=== PATIENT | male | born 1935 | race Caucasian/White ===

== ENCOUNTER 2018-05-07 11:39 | Outpatient (CLI) | payer MEDICARE ==
--- NOTE | 2018-05-07 13:28 | RAD ---
RIGHT HIP TWO VIEWS: HISTORY: Right hip pain. No history of fall. TECHNIQUE: AP and frogleg views of the right hip are obtained. 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 Findings are compatible with severe right hip osteoarthritis. No evidence of acute fracture is seen. IMPRESSION: Severe right hip osteoarthritic changes. POS: [facility]
== END 2018-05-07 11:40 | disposition home or self-care (01) ==
LOC: SCSRAD 11:39
PROVIDERS: ATTEND Family Medicine
DX: M25.551 Pain in right hip (principal); M16.11 Unilateral primary osteoarthritis, right hip

== ENCOUNTER 2022-12-13 10:23 | Inpatient (IN) | payer MEDICARE ==
[2022-12-13 11:33] LABS: #Neutrophils 16.6 thou/uL (1.40-6.50); %Basophils 0.1 % (0.0-1.0); %Lymphocytes 5.1 % (21.0-51.0); %Monocytes 5.2 % (0.0-10.0); %Neutrophils 88.9 % (42.0-75.0); Hematocrit 46.3 % (42.0-52.0); Hemoglobin 16.5 g/dL (14.0-18.0); Mean Corpuscular HGB CONC 35.6 g/dL (32.0-36.0); Mean Corpuscular Volume 95.5 fl (78.0-98.0); Platelet Count 132 10x3/uL (130-400); RBC Distribution Width 12.5 % (11.5-14.5); Red Blood Cell (RBC) Count 4.85 mill/uL (4.70-6.10); White Blood Cell (WBC) Count 18.7 10x3/uL (4.8-10.8)
[2022-12-13 11:54] LABS: INR-International Normal Ratio 1.1; PTT 29.4 sec (22.9-36.1); Prothrombin Time 14.5 sec (12.0-14.7)
[2022-12-13 11:57] LABS: ALT (SGPT) 47 U/L (8-55); AST (SGOT) 176 U/L (5-34); Albumin 4.3 g/dL (3.4-4.8); Alkaline Phosphatase 80 U/L (40-110); Anion Gap 19 mmol/L (10-20); BUN (Urea Nitrogen) 17 mg/dL (8.4-25.7); Bilirubin, Total 2.7 mg/dL (0.2-1.2); Calc. Creatinine Clearance 0 mL/min (70-130); Calcium 9.3 mg/dL (7.8-10.44); Carbon Dioxide 21 mmol/L (23-31); Chloride 103 mmol/L (98-107); Estimated GFR 62; Globulin 2.9 g/dL (2.4-3.5); Glucose 144 mg/dL (83-110); Potassium 3.9 mmol/L (3.5-5.1); Protein, Total 7.2 g/dL (5.8-8.1); Sodium 139 mmol/L (136-145)
[2022-12-13] MEDS ORDERED: Ipratropium/Albuterol 3 ML NEB NEB PRN (13:00)
[2022-12-13] MEDS ORDERED: Morphine 2 MG/ML VIAL SLOW IVP PRN (13:00)
[2022-12-13] MEDS ORDERED: Ondansetron ODT 4 MG TAB PO PRN (13:00)
[2022-12-13] MEDS ORDERED: hydrALAZINE 20 MG/ML VIAL SLOW IVP PRN (13:00)
[2022-12-13] MEDS ORDERED: Dextrose 50% Abboject 50 ML SYRINGE SLOW IVP PRN ×2 (13:00→13:08)
[2022-12-13] MEDS ORDERED: Glucagon 1 MG/ML KIT IM PRN ×2 (13:00→13:08)
[2022-12-13] MEDS ORDERED: Dextrose 5% in Water 1,000 ML IV PRN ×2 (13:00→13:08)
[2022-12-13] MEDS ORDERED: TETANUS, DIPHTHERIA TOX,ADULT (TDVAX) 0.5 ML VIAL IM ONE (13:00)
[2022-12-13] MEDS ORDERED: HumaLOG 300 UNITS/3 ML VIAL SC PRN (13:08)
[2022-12-13 15:57] VITALS: BMI 27.1
[2022-12-13] MEDS: Sodium Chloride 0.9% 1,000 ML IV SCH (16:46)
[2022-12-13] MEDS: Acetaminophen 325 MG TAB PO SCH ×2 (18:12→23:00)
[2022-12-13] MEDS: Famotidine 20 MG TAB PO SCH (22:00)
[2022-12-13] MEDS: traMADol HCl 50 MG TAB PO PRN (22:11)
[2022-12-14] MEDS: Sodium Chloride 0.9% 1,000 ML IV SCH ×3 (00:05→22:23)
[2022-12-14 00:33] LABS: Bacteria/HPF 2+ HPF (None Seen); Bilirubin Negative (Negative); Blood, Urine 3+ (Negative); CAUTI Indications for Culture Alt mental st,lethar; Clarity Turbid (Clear); Glucose, Urine (Dipstick) Normal (Negative); Ketone, Urine Trace mg/dL (Negative); Leukocyte 75 Leu/uL (Negative); Nitrite 2+ (Negative); Protein, Urine (Dipstick) 100 mg/dL (Neg-Trace); RBC/HPF Greater than 50 HPF (0-3); Specific Gravity, Urine 1.032 (1.002-1.036); Squamous Epithelial 0-3 HPF (0-3); Urobilinogen Normal mg/dL (Less than 2); WBC/HPF Greater than 50 HPF (0-3); pH, Urine 5.5 (5.0-9.0)
[2022-12-14 00:37] LABS: Urine Culture Reflex Yes Yes
[2022-12-14] MEDS: Acetaminophen 325 MG TAB PO SCH ×3 (05:53→18:23)
[2022-12-14 06:11] LABS: #Basophils 0.1 thou/uL (0.0-0.2); #Neutrophils 10.3 thou/uL (1.40-6.50); %Basophils 0.4 % (0.0-1.0); %Eosinophils 0.2 % (0.0-10.0); %Lymphocytes 11.9 % (21.0-51.0); %Monocytes 7.5 % (0.0-10.0); %Neutrophils 79.3 % (42.0-75.0); Hematocrit 41.6 % (42.0-52.0); Hemoglobin 14.2 g/dL (14.0-18.0); Mean Corpuscular HGB CONC 34.1 g/dL (32.0-36.0); Mean Platelet Volume 12.5 fL (7.4-10.4); Platelet Count 111 10x3/uL (130-400); RBC Distribution Width 13.1 % (11.5-14.5); Red Blood Cell (RBC) Count 4.18 mill/uL (4.70-6.10)
[2022-12-14 06:24] LABS: Mean Corpuscular Volume 99.5 fl (78.0-98.0)
[2022-12-14 06:31] LABS: Anion Gap 13 mmol/L (10-20); BUN (Urea Nitrogen) 22 mg/dL (8.4-25.7); Calc. Creatinine Clearance 58 mL/min (70-130); Calcium 8.4 mg/dL (7.8-10.44); Carbon Dioxide 24 mmol/L (23-31); Chloride 106 mmol/L (98-107); Estimated GFR 60; Glucose 111 mg/dL (83-110); Sodium 139 mmol/L (136-145)
[2022-12-14] MEDS ORDERED: CEFAZOLIN 2 GM in Sodium Chloride 0.9% 100 ML IVPB SCH (06:45)
[2022-12-14] MEDS ORDERED: Piperacillin/Tazobactam 3.375 GM in Sodium Chloride 0.9% 100 ML IVPB SCH (08:00)
[2022-12-14] MEDS: Tamsulosin HCl 0.4 MG CAP PO SCH (09:12)
[2022-12-14] MEDS: Famotidine 20 MG TAB PO SCH ×2 (09:12→21:27)
[2022-12-14] MEDS: Polyethylene Glycol 3350 17 GM Packet PO SCH (09:37)
[2022-12-14] MEDS: Senokot S 8.6-50 MG TAB PO SCH ×2 (09:38→21:27)
[2022-12-14] MEDS ORDERED: Sodium Chloride 0.9% 100 ML ONE ×2 (13:32→13:43)
[2022-12-14] MEDS ORDERED: Piperacillin/Tazobactam 3.375 GM VIAL ONE (13:32)
[2022-12-14] MEDS ORDERED: CEFAZOLIN 2 GM VIAL ONE (13:43)
[2022-12-14] MEDS ORDERED: NEOSTIGMINE 3 MG/3 ML SYR 3 MG/3 ML SYRINGE ONE (13:57)
[2022-12-14] MEDS ORDERED: Rocuronium Bromide 10 MG/ML (10ML VIAL) ONE (13:57)
[2022-12-14] MEDS ORDERED: Lidocaine 1% PF 5 ML VIAL ONE (13:57)
[2022-12-14] MEDS ORDERED: Glycopyrrolate 0.2 MG/ML 5 ML SYRINGE ONE (13:57)
[2022-12-14] MEDS ORDERED: PHENYLEPHRINE-NS 100 MCG/ML 10 ML SYRINGE ONE (13:57)
[2022-12-14] MEDS ORDERED: Esmolol 100 MG/10 ML VIAL ONE (13:57)
[2022-12-14] MEDS ORDERED: Ondansetron PF 4 MG/2 ML Vial ONE (13:57)
[2022-12-14] MEDS ORDERED: ePHEDrine Sulfate 50 MG/10 ML VIAL ONE (13:57)
[2022-12-14] MEDS ORDERED: PROPOFOL 200 MG/20 ML VIAL ONE (13:57)
[2022-12-14] MEDS: Piperacillin/Tazobactam 3.375 GM in Sodium Chloride 0.9% 100 ML IVPB SCH ×2 (13:59→21:31)
[2022-12-14] MEDS ORDERED: fentaNYL 50 mcg/mL 1 mL Vial ONE ×4 (14:27→15:50)
[2022-12-14] MEDS ORDERED: Promethazine HCl 25 MG/ML VIAL IM PRN (15:37)
[2022-12-14] MEDS ORDERED: Ondansetron HCl/PF 4 MG/2 ML Vial IVP PRN (15:37)
[2022-12-14] MEDS ORDERED: Morphine Sulfate 2 MG/ML SYRINGE SLOW IVP PRN (15:37)
[2022-12-14] MEDS: CEFAZOLIN 2 GM in Sodium Chloride 0.9% 100 ML IVPB SCH (21:27)
[2022-12-14] MEDS: Rosuvastatin 10 MG TAB PO SCH (21:27)
[2022-12-14] MEDS: Donepezil HCl 10 MG TAB PO SCH (21:27)
[2022-12-14] MEDS: traMADol HCl 50 MG TAB PO PRN (21:39)
[2022-12-15] MEDS: Acetaminophen 325 MG TAB PO SCH ×5 (00:31→23:42)
[2022-12-15] MEDS: Piperacillin/Tazobactam 3.375 GM in Sodium Chloride 0.9% 100 ML IVPB SCH ×3 (03:52→20:42)
[2022-12-15 05:16] LABS: #Basophils 0.1 thou/uL (0.0-0.2); #Monocytes 1.2 thou/uL (0.11-0.59); #Neutrophils 8.4 thou/uL (1.40-6.50); %Basophils 0.5 % (0.0-1.0); %Eosinophils 0.3 % (0.0-10.0); %Lymphocytes 15.2 % (21.0-51.0); %Monocytes 10.6 % (0.0-10.0); %Neutrophils 72.9 % (42.0-75.0); Hematocrit 35.2 % (42.0-52.0); Hemoglobin 12.3 g/dL (14.0-18.0); Mean Corpuscular HGB CONC 34.9 g/dL (32.0-36.0); Mean Corpuscular Hemoglobin 34.6 pg (27.0-31.0); Mean Corpuscular Volume 98.9 fl (78.0-98.0); Mean Platelet Volume 11.4 fL (7.4-10.4); Platelet Count 101 10x3/uL (130-400); RBC Distribution Width 12.6 % (11.5-14.5); Red Blood Cell (RBC) Count 3.56 mill/uL (4.70-6.10); White Blood Cell (WBC) Count 11.5 10x3/uL (4.8-10.8)
[2022-12-15] MEDS: Sodium Chloride 0.9% 1,000 ML IV SCH ×2 (05:19→18:27)
[2022-12-15] MEDS: CEFAZOLIN 2 GM in Sodium Chloride 0.9% 100 ML IVPB SCH ×2 (06:05→15:50)
[2022-12-15] MEDS: Senokot S 8.6-50 MG TAB PO SCH ×2 (08:47→20:43)
[2022-12-15] MEDS: Polyethylene Glycol 3350 17 GM Packet PO SCH (08:47)
[2022-12-15] MEDS: Tamsulosin HCl 0.4 MG CAP PO SCH (08:47)
[2022-12-15] MEDS: Famotidine 20 MG TAB PO SCH ×2 (08:47→20:43)
[2022-12-15] MEDS: Rosuvastatin 10 MG TAB PO SCH (20:43)
[2022-12-15] MEDS: Donepezil HCl 10 MG TAB PO SCH (20:43)
[2022-12-15] MEDS: traMADol HCl 50 MG TAB PO PRN (22:54)
[2022-12-16] MEDS: Sodium Chloride 0.9% 1,000 ML IV SCH ×4 (01:34→21:40)
[2022-12-16] MEDS: Piperacillin/Tazobactam 3.375 GM in Sodium Chloride 0.9% 100 ML IVPB SCH ×3 (04:04→20:21)
[2022-12-16 05:33] LABS: #Eosinphils 0.1 thou/uL (0.0-0.7); %Basophils 0.4 % (0.0-1.0); %Eosinophils 1.4 % (0.0-10.0); %Lymphocytes 19.1 % (21.0-51.0); %Monocytes 9.9 % (0.0-10.0); %Neutrophils 68.5 % (42.0-75.0); Hematocrit 34.4 % (42.0-52.0); Hemoglobin 11.6 g/dL (14.0-18.0); Mean Corpuscular HGB CONC 33.7 g/dL (32.0-36.0); Mean Corpuscular Hemoglobin 33.8 pg (27.0-31.0); Mean Corpuscular Volume 100.3 fl (78.0-98.0); Mean Platelet Volume 12.2 fL (7.4-10.4); RBC Distribution Width 12.6 % (11.5-14.5); Red Blood Cell (RBC) Count 3.43 mill/uL (4.70-6.10); White Blood Cell (WBC) Count 10.1 10x3/uL (4.8-10.8)
[2022-12-16] MEDS: Acetaminophen 325 MG TAB PO SCH ×4 (05:40→23:54)
[2022-12-16 06:06] LABS: Platelet Count 95 10x3/uL (130-400)
[2022-12-16] MEDS: Tamsulosin HCl 0.4 MG CAP PO SCH (08:31)
[2022-12-16] MEDS: Famotidine 20 MG TAB PO SCH ×2 (08:31→20:20)
[2022-12-16] MEDS: Senokot S 8.6-50 MG TAB PO SCH ×2 (08:32→20:21)
[2022-12-16] MEDS: Polyethylene Glycol 3350 17 GM Packet PO SCH (08:35)
[2022-12-16] MEDS: traMADol HCl 50 MG TAB PO PRN ×2 (10:23→20:19)
[2022-12-16] MEDS: Rosuvastatin 10 MG TAB PO SCH (20:20)
[2022-12-16] MEDS: Donepezil HCl 10 MG TAB PO SCH (20:20)
[2022-12-17] MEDS: Piperacillin/Tazobactam 3.375 GM in Sodium Chloride 0.9% 100 ML IVPB SCH (03:31)
[2022-12-17 05:25] LABS: #Basophils 0.1 thou/uL (0.0-0.2); #Eosinphils 0.2 thou/uL (0.0-0.7); #Monocytes 1.1 thou/uL (0.11-0.59); #Neutrophils 6.2 thou/uL (1.40-6.50); %Basophils 0.8 % (0.0-1.0); %Eosinophils 2.6 % (0.0-10.0); %Lymphocytes 16.8 % (21.0-51.0); %Monocytes 11.9 % (0.0-10.0); Hematocrit 34.1 % (42.0-52.0); Hemoglobin 11.4 g/dL (14.0-18.0); Mean Corpuscular HGB CONC 33.4 g/dL (32.0-36.0); Mean Corpuscular Hemoglobin 34.4 pg (27.0-31.0); Mean Platelet Volume 12.3 fL (7.4-10.4); Platelet Count 112 10x3/uL (130-400); RBC Distribution Width 12.7 % (11.5-14.5); Red Blood Cell (RBC) Count 3.31 mill/uL (4.70-6.10); White Blood Cell (WBC) Count 9.3 10x3/uL (4.8-10.8)
[2022-12-17] MEDS: Acetaminophen 325 MG TAB PO SCH ×3 (05:44→16:57)
[2022-12-17] MEDS: Sodium Chloride 0.9% 1,000 ML IV SCH ×2 (07:37→16:08)
[2022-12-17] MEDS: Nitrofurantoin Monohyd/M-Cryst 100 MG CAP PO SCH ×2 (08:26→21:56)
[2022-12-17] MEDS: Senokot S 8.6-50 MG TAB PO SCH ×2 (08:26→21:57)
[2022-12-17] MEDS: Polyethylene Glycol 3350 17 GM Packet PO SCH (08:26)
[2022-12-17] MEDS: Famotidine 20 MG TAB PO SCH ×2 (08:26→21:56)
[2022-12-17] MEDS: Tamsulosin HCl 0.4 MG CAP PO SCH (08:26)
[2022-12-17] MEDS: Donepezil HCl 10 MG TAB PO SCH (21:55)
[2022-12-17] MEDS: Rosuvastatin 10 MG TAB PO SCH (21:56)
[2022-12-17] MEDS: traMADol HCl 50 MG TAB PO PRN (22:02)
[2022-12-18] MEDS: Acetaminophen 325 MG TAB PO SCH ×4 (02:52→18:48)
[2022-12-18] MEDS: Sodium Chloride 0.9% 1,000 ML IV SCH ×2 (06:42→14:26)
[2022-12-18] MEDS: Famotidine 20 MG TAB PO SCH ×2 (08:19→21:10)
[2022-12-18] MEDS: Senokot S 8.6-50 MG TAB PO SCH ×2 (08:20→21:22)
[2022-12-18] MEDS: Polyethylene Glycol 3350 17 GM Packet PO SCH (08:20)
[2022-12-18] MEDS: Tamsulosin HCl 0.4 MG CAP PO SCH (08:20)
[2022-12-18] MEDS: Nitrofurantoin Monohyd/M-Cryst 100 MG CAP PO SCH ×2 (08:20→21:10)
[2022-12-18] MEDS: Donepezil HCl 10 MG TAB PO SCH (21:10)
[2022-12-18] MEDS: traMADol HCl 50 MG TAB PO PRN (21:10)
[2022-12-18] MEDS: Rosuvastatin 10 MG TAB PO SCH (21:10)
[2022-12-19] MEDS: Acetaminophen 325 MG TAB PO SCH ×4 (00:38→18:13)
[2022-12-19] MEDS: Sodium Chloride 0.9% 1,000 ML IV SCH ×2 (00:38→11:05)
[2022-12-19] MEDS: Famotidine 20 MG TAB PO SCH (08:45)
[2022-12-19] MEDS: Tamsulosin HCl 0.4 MG CAP PO SCH (08:45)
[2022-12-19] MEDS: Nitrofurantoin Monohyd/M-Cryst 100 MG CAP PO SCH (08:45)
[2022-12-19] MEDS: Polyethylene Glycol 3350 17 GM Packet PO SCH (11:05)
[2022-12-19] MEDS: Senokot S 8.6-50 MG TAB PO SCH (11:05)
[2022-12-19 17:32] VITALS: BP 117/75; TEMP 98.4
== END 2022-12-19 18:51 | DRG 522 ==
LOC: ERS 10:23 → SURG B 12:52
PROVIDERS: ADMIT Surgery; ATTEND Surgery
PROC: 0SRS0JZ Replacement of Left Hip Joint, Femoral Surface with Synthetic Substitute, Open Approach (ICD-10-PCS; principal; 2022-12-14)
DX: S72.002A Fracture of unspecified part of neck of left femur, initial encounter for closed fracture (principal); S42.212A Unspecified displaced fracture of surgical neck of left humerus, initial encounter for closed fracture; N39.0 Urinary tract infection, site not specified; W19.XXXA Unspecified fall, initial encounter; Z96.641 Presence of right artificial hip joint; H91.10 Presbycusis, unspecified ear; M19.012 Primary osteoarthritis, left shoulder; S01.81XA Laceration without foreign body of other part of head, initial encounter; E78.5 Hyperlipidemia, unspecified; D69.6 Thrombocytopenia, unspecified; F03.90 Unspecified dementia, unspecified severity, without behavioral disturbance, psychotic disturbance, mood disturbance, and anxiety
CPT/HCPCS: 36415; 36416; 70450; 71045; 72125; 72170; 80048; 80053; 81001; 85025; 85610; 85730; 87077; 87086; 87186; 90714; 93005; 93010; C1713; C1776; G0390; J1650; J2272; J2405; J2543; J2704; J3010; J3490; J7050